=== PATIENT | female | born 1965 | race Caucasian/White ===

== ENCOUNTER 2017-04-13 23:50 | Emergency (ER) | payer OTHER, MEDICAID ==
[2015-12-15 14:00] VITALS: BMI 58.9
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
[2017-04-14 04:03] VITALS: BP 123/76; PULSE 75; RESP 20; TEMP 98.3; O2SAT 95
--- NOTE | 2017-04-14 04:21 | RAD ---
EXAM: XR Chest, 1 View CLINICAL HISTORY: 51 years old, female; Pain; Chest pain; Type not specified; Additional info: Injury /pain TECHNIQUE: Frontal view of the chest. EXAM DATE/TIME: Exam ordered 04/14/2017 1:45 AM COMPARISON: CR - CHEST ONE VIEW 04/14/2017 1:48:14 AM FINDINGS: Lungs: Central vascular prominence which may be partly an artifact of the semierect position and suboptimal inspiration. Pleural space: No pneumothorax. Heart: Prominent heart size. Mediastinum: Unremarkable. Bones/joints: Unremarkable. Vasculature: Central vascular prominence. Other findings: The present examination is labeled left semierect. There is comparison to a study which is time stamped 1 hour later with the comparison study being labeled left semierect portable. There are similar findings. IMPRESSION: Central vascular prominence which may be partly an artifact of the semierect position and suboptimal inspiration. Difficult to exclude mild pulmonary vascular congestion.
--- NOTE | 2017-04-14 08:20 | CT ---
PROCEDURE: CT HEAD WITHOUT CONTRAST. HISTORY: injury/pain COMPARISON: None available. TECHNIQUE: Axial computed tomography images were obtained through the head/brain without intravenous contrast. Radiation dose: Total exam DLP = 1451 mGy-cm. This CT exam was performed using one or more of the following dose reduction techniques: Automated exposure control, adjustment of the mA and/or kV according to patient size, and/or use of iterative reconstruction technique. FINDINGS: HEMORRHAGE: No intracranial hemorrhage. BRAIN: No mass effect or edema. No atrophy or chronic microvascular ischemic changes. VENTRICLES: Unremarkable. No hydrocephalus. CALVARIUM: Unremarkable. PARANASAL SINUSES: Large mucosal retention cyst and or polyp in the left maxillary sinus. MASTOID AIR CELLS: Unremarkable as visualized. No inflammatory changes. OTHER FINDINGS: None. IMPRESSION: No acute intracranial abnormality. Large mucosal retention cyst and or polyp in the left maxillary sinus. If focal neurologic deficit persists, consider MRI. These findings were preliminarily reported at 1:47 a.m. on 04/14/[address] Curtis Vanegas from [facility].
--- NOTE | 2017-04-14 09:11 | CT ---
PROCEDURE: CT Cervical Spine without contrast HISTORY: Fall COMPARISON: None available. TECHNIQUE: Axial computed tomography images were obtained of the cervical spine without the use of intravenous contrast. Coronal and sagittal reformatted images were created and reviewed. Radiation dose: Total exam DLP = 751.80 mGy-cm. This CT exam was performed using one or more of the following dose reduction techniques: Automated exposure control, adjustment of the mA and/or kV according to patient size, and/or use of iterative reconstruction technique. FINDINGS: VERTEBRAE: There is straightening of the cervical spine with loss of normal cervical lordosis. Vertebral alignment is normal. Vertebral height is maintained. There is an apparent transverse lucency at the base of the odontoid process with irregularity in the posterior cortex. There is no traumatic anterior listhesis. DISCS/SPINAL CANAL/NEURAL FORAMINA: There is mild multilevel degenerative disc disease due to a combination of disc osteophyte complexes, uncovertebral joint hypertrophy and mild multilevel facet arthropathy, worse at C4-5 with moderate right neural foraminal stenosis and PARASPINAL SOFT TISSUES: The paraspinous soft tissues are normal. OTHER FINDINGS: None. IMPRESSION: 1. Apparent transverse lucency at the base of the odontoid process with irregularity in the posterior cortex could represent an os odontoid however a nondisplaced fracture cannot be entirely excluded on an appropriate clinical setting. An MRI of the cervical spine without intravenous contrast would be helpful for further evaluation if clinically indicated. 2. Straightening of the cervical spine may be positional or related to muscle spasm. A preliminary report was provided by [facility] services. The concern of fracture at the base of the odontoid process was not raised on preliminary report. Important findings were discussed with Dr. Vanegas on 04/14/2017 at 9 a.m.
--- NOTE | 2017-04-14 12:22 | RAD ---
Right knee three views History: Injury. Pain. Comparison: None available. Findings: Moderate medial compartment joint space narrowing. Small to moderate suprapatellar joint effusion. No evidence of acute displaced fracture or dislocation. Impression: Moderate medial compartment joint space narrowing. Small to moderate suprapatellar joint effusion. If pain persists, consider MRI.
--- NOTE | 2017-04-14 12:49 | RAD ---
Left elbow three views History: Injury. Comparison: None available. Findings: Study limited secondary to large patient body habitus and suboptimal patient positioning and technique. No evidence of acute displaced fracture or dislocation. No significant elbow joint effusion. Impression: Negative acute. If pain persists, consider MRI.
== END 2017-04-14 04:52 | disposition home or self-care (01) ==
LOC: C.ER 23:50
DX: T14.8 Other injury of unspecified body region (principal); W07.XXXA Fall from chair, initial encounter; Y93.89 Activity, other specified; Y92.89 Other specified places as the place of occurrence of the external cause; Y99.0 Civilian activity done for income or pay
CPT/HCPCS: 70450; 71010; 72125; 73080; 73562; 96372; 99285; J1885

== ENCOUNTER 2017-05-17 23:09 | Observation (INO) | payer MEDICAID, OTHER ==
[2017-05-17 23:09] VITALS: BMI 58.9
[2017-05-17] MEDS ORDERED: Albuterol-Ipratrop 3 mg / 0.5 (3 ml) UD ONE (23:13)
[2017-05-17] MEDS ORDERED: Albuterol-Ipratrop 3 mg / 0.5 (3 ml) UD INH STA (23:34)
[2017-05-18 00:15] LABS: BASO # 0.1 K/uL (0.0-0.2); BASO % 0.6 % (0.0-2.0); EOS # 0.1 K/uL (0.0-0.7); EOS % 0.4 % (0.0-4.0); LYMPH # 1.2 K/uL (1.0-4.3); LYMPH % 9.4 % (20.0-40.0); MEAN CORPUSCULAR HEMOGLOBIN 29.4 pg (27.0-31.0); MEAN CORPUSCULAR HGB CONC 31.6 g/dL (33.0-37.0); MEAN PLATELET VOLUME 7.4 fL (7.2-11.7); MONO # 0.8 K/uL (0.0-0.8); MONO % 6.4 % (0.0-10.0); NEUT # 10.7 K/uL (1.8-7.0); NEUT % 83.2 % (50.0-75.0); PLATELET COUNT 282 K/uL (130-400); RBC 4.76 Mil/uL (3.80-5.20); RED CELL DISTRIBUTION WIDTH 15.5 % (11.5-14.5); WHITE BLOOD COUNT 12.9 K/uL (4.8-10.8)
[2017-05-18 00:28] LABS: ALB/GLOB RATIO 1.3 (1.0-2.1); ALBUMIN 3.7 g/dL (3.5-5.0); ALT/SGPT 51 U/L (9-52); AST/SGOT 35 U/L (14-36); BLOOD UREA NITROGEN 13 mg/dL (7-17); CALCIUM 8.2 mg/dl (8.6-10.4); GFR AFRICAN-AMERICAN > 60; GFR NON-AFRICAN AMERICAN > 60
[2017-05-18 00:40] LABS: B-TYPE NATRIURETIC PEPTIDE 342 pg/mL (0-900)
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
[2017-05-18] MEDS ORDERED: Azithromycin 500 MG in Sodium Chloride 0.9% 250 ML IV STA (00:49)
[2017-05-18] MEDS ORDERED: Albuterol-Ipratrop 3 mg / 0.5 (3 ml) UD INH STA (00:50)
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
[2017-05-18] MEDS ORDERED: cefTRIAXone IV 1 gm in Dextros 50 ML IVPB ONE (01:01)
[2017-05-18] MEDS ORDERED: Azithromycin 500mg/250ML NS 500 MG/250 ML BAG IVPB ONE (01:01)
[2017-05-18] MEDS ORDERED: Albuterol-Ipratrop 3 mg / 0.5 (3 ml) UD ONE ×2 (01:02)
[2017-05-18] MEDS ORDERED: Enoxaparin 40 mg Syringe SC STA (01:02)
[2017-05-18 01:06] LABS: BANDS 1 % (0-2); LYMPHOCYTE 7 % (20-40); MONOCYTE 8 % (0-10); NEUTROPHIL 84 % (50-75); PLATELET ESTIMATE NORMAL (NORMAL); TOTAL CELLS COUNTED 100
[2017-05-18 01:28] LABS: SQUAMOUS EPITHIAL < 1 /hpf (0-5); URINE BACTERIA OCC (<OCC); URINE BILIRUBIN NEGATIVE (NEGATIVE); URINE COLOR Yellow (YELLOW); URINE GLUCOSE (UA) NORMAL (Normal); URINE LEUKOCYTE ESTERASE 1+ Leu/uL (Negative); URINE NITRATE NEGATIVE (NEGATIVE); URINE PROTEIN NEGATIVE (NEGATIVE); URINE UROBILINOGEN NORMAL mg/dL (0.2-1.0)
[2017-05-18 01:32] LABS: URINE BLOOD TRACE (NEGATIVE); URINE CLARITY Hazy (Clear)
[2017-05-18 01:33] LABS: BARBITURATES, UR NEGATIVE (NEGATIVE); BENZODIAZEPINES, UR NEGATIVE (NEGATIVE)
[2017-05-18 01:36] LABS: PHENCYCLIDINE, UR NEGATIVE (NEGATIVE)
[2017-05-18 01:42] LABS: OPIATES, UR POSITIVE (NEGATIVE)
[2017-05-18] MEDS ORDERED: DiphenhydrAMINE 50 mg/ml Inj ONE (02:46)
[2017-05-18] MEDS ORDERED: DiphenhydrAMINE 50 mg/ml Inj IVP STA (02:57)
--- NOTE | 2017-05-18 03:45 | CT ---
EXAM: CT Angiography Chest With Intravenous Contrast CLINICAL HISTORY: 51 years old, female; Signs and symptoms; Shortness of breath; Additional info: Sob/megaly, ? pe TECHNIQUE: Axial computed tomographic angiography images of the chest with intravenous contrast using pulmonary embolism protocol. This CT exam was performed using one or more of the following dose reduction techniques: automated exposure control, adjustment of the mA and/or kV according to patient size, and/or use of iterative reconstruction technique. MIP reconstructed images were created and reviewed. Coronal and sagittal reformatted images were created and reviewed. CONTRAST: 100 mL of [id number] administered intravenously. EXAM DATE/TIME: 05/18/2017 12:59 AM COMPARISON: CR - CHEST ONE VIEW 04/14/2017 1:48:14 AM FINDINGS: Artifact due to large body habitus. Mild cardiomegaly. Consolidation/atelectasis in the midlungs abutting the cardiac borders. Platelike atelectasis in the lower lungs. No pulmonary embolism. No aortic dissection or aneurysm. No pleural or pericardial effussions. Old rib fractures are noted. Cholecystectomy clips are present. There is a 1.5 cm exophytic left renal lesion containing calcification for which followup is recommended. Atrophic right kidney. IMPRESSION: Bilateral atelectasis. Nonacute renal findings as above.
[2017-05-18] MEDS: Moxifloxacin IV 400mg/250ml NS 400 MG/250 ML BAG IVPB SCH (06:19)
[2017-05-18] MEDS: Enoxaparin 40 mg Syringe SC SCH (09:23)
[2017-05-18] MEDS: MethylPREDNISolone 40 mg Vial IVP SCH ×3 (09:23→17:13)
[2017-05-18] MEDS: Azithromycin 500 MG in Sodium Chloride 0.9% 250 ML IVPB SCH (09:34)
--- NOTE | 2017-05-18 10:58 | RAD ---
PROCEDURE: CHEST RADIOGRAPH, 1 VIEW HISTORY: SOB COMPARISON: 04/14/2017. FINDINGS: LUNGS: Examination is limited by patient body habitus. The lungs are clear. PLEURA: No pneumothorax or pleural fluid seen. CARDIOVASCULAR: This persistent cardiomegaly and mild pulmonary venous congestion. There is stable prominence of the right hilum likely related to a prominent pulmonary artery OSSEOUS STRUCTURES: No significant abnormalities. VISUALIZED UPPER ABDOMEN: Normal. OTHER FINDINGS: None. IMPRESSION: Persistent cardiomegaly and mild pulmonary venous congestion
[2017-05-18] MEDS: Albuterol-Ipratrop 3 mg / 0.5 (3 ml) UD INH SCH ×3 (11:16→20:13)
[2017-05-18] MEDS ORDERED: Potassium Chloride 20 mEq/15 ml LIQ UD PO ONE (18:49)
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
[2017-05-19] MEDS: Albuterol-Ipratrop 3 mg / 0.5 (3 ml) UD INH SCH ×8 (00:50→23:51)
[2017-05-19] MEDS: Moxifloxacin IV 400mg/250ml NS 400 MG/250 ML BAG IVPB SCH (05:25)
[2017-05-19 06:25] LABS: BASO % 0.3 % (0.0-2.0); HEMOGLOBIN 13.3 g/dL (11.0-16.0); LYMPH # 0.7 K/uL (1.0-4.3); LYMPH % 5.2 % (20.0-40.0); MEAN CELL VOLUME 93.3 fL (81.0-99.0); MEAN CORPUSCULAR HEMOGLOBIN 30.6 pg (27.0-31.0); MEAN CORPUSCULAR HGB CONC 32.8 g/dL (33.0-37.0); MEAN PLATELET VOLUME 7.4 fL (7.2-11.7); MONO # 0.9 K/uL (0.0-0.8); MONO % 6.1 % (0.0-10.0); NEUT # 12.5 K/uL (1.8-7.0); NEUT % 88.4 % (50.0-75.0); PLATELET COUNT 282 K/uL (130-400); RBC 4.36 Mil/uL (3.80-5.20); RED CELL DISTRIBUTION WIDTH 15.9 % (11.5-14.5); WHITE BLOOD COUNT 14.2 K/uL (4.8-10.8)
[2017-05-19 06:42] LABS: ALB/GLOB RATIO 1.2 (1.0-2.1); ALBUMIN 3.4 g/dL (3.5-5.0); ALT/SGPT 44 U/L (9-52); AST/SGOT 17 U/L (14-36); BLOOD UREA NITROGEN 17 mg/dL (7-17); GFR AFRICAN-AMERICAN > 60; GFR NON-AFRICAN AMERICAN > 60
[2017-05-19] MEDS: Fluticasone-Salmeterol 250-50mcg Diskus IH SCH (07:30)
[2017-05-19 08:27] LABS: EOSINOPHIL 1 % (0-4); LYMPHOCYTE 4 % (20-40); MONOCYTE 5 % (0-10); NEUTROPHIL 90 % (50-75); TOTAL CELLS COUNTED 100
[2017-05-19 08:28] LABS: PLATELET ESTIMATE NORMAL (NORMAL)
[2017-05-19] MEDS: MethylPREDNISolone 40 mg Vial IVP SCH ×3 (09:37→17:04)
[2017-05-19] MEDS: Enoxaparin 40 mg Syringe SC SCH (09:38)
[2017-05-19] MEDS: Azithromycin 500 MG in Sodium Chloride 0.9% 250 ML IVPB SCH (09:56)
[2017-05-19] MEDS: Tiotropium 18 mcg Cap For Inhalation IH SCH (11:19)
--- NOTE | 2017-05-19 13:58 | CARD ---
APPROVED REPORT EKG Measurement Heart [id number] <Conclusion> Normal sinus rhythm Rightward axis Low voltage QRS Cannot rule out Anterior infarct, age undetermined Abnormal ECG
--- NOTE | 2017-05-19 15:50 | CP.PCM.PN ---
Subjective - Date & Time of Evaluation Date of Evaluation: 05/19/17 Time of Evaluation: 15:50 - Subjective Subjective: PT SEEN BY DR. GILBERT. WILL D/C IF PEAK FLOW IMPROVES. LASIX X1 DOSE ORDERED. PT STILL MILDLY SOB AT REST. TO RE-EVAL FOR POSS D/C IN AM PENDING PT STATUS. DR. GILBERT TO FOLLOW WELL. Objective - Vital Signs/Intake and Output Vital Signs (last 24 hours): Temp Pulse Resp BP Pulse Ox 98.4 F 75 20 142/88 98 05/19/17 07:25 05/19/17 12:00 05/19/17 07:25 05/19/17 07:25 05/19/17 07:25 Intake and Output: 05/19/17 05/19/17 06:59 18:59 Intake Total 370 500 Output Total 1725 650 Balance -1355 -150 - Medications Medications: Current Medications Acetaminophen (Tylenol 325mg Tab) 650 mg PO Q6 PRN PRN Reason: Headache Last Admin: 05/19/17 14:56 Dose: 650 mg Albuterol/Ipratropium (Duoneb 3 Mg/0.5 Mg (3 Ml) Ud) 3 ml INH RQ4 [facility]ENNY Last Admin: 05/19/17 15:46 Dose: 3 ml Enoxaparin Sodium (Lovenox) 40 mg SC DAILY COUNTS INCLUDE 234 BEDS AT THE [facility] Last Admin: 05/19/17 09:38 Dose: 40 mg Furosemide (Lasix) 20 mg IVP ONCE ONE Stop: 05/19/17 16:01 Guaifenesin (Mucinex La) 600 mg PO BID COUNTS INCLUDE 234 BEDS AT THE [facility] Azithromycin 500 mg/ Sodium (Chloride) 250 mls @ 250 mls/hr IVPB DAILY RENNY Last Admin: 05/19/17 09:56 Dose: 250 mls/hr Moxifloxacin HCl (Avelox Iv 400mg/250ml Ns) 400 mg in 250 mls @ 167 mls/hr IVPB Q24H COUNTS INCLUDE 234 BEDS AT THE [facility] Last Admin: 05/19/17 05:25 Dose: 167 mls/hr Methylprednisolone (Solu-Medrol) 40 mg IVP TID RENNY Last Admin: 05/19/17 14:55 Dose: 40 mg Pantoprazole Sodium (Protonix Inj) 40 mg IVP DAILY COUNTS INCLUDE 234 BEDS AT THE [facility] Last Admin: 05/19/17 09:37 Dose: 40 mg Fluticasone/Salmeterol (Advair Diskus 250/50) 1 puff IH RQD RENNY Last Admin: 05/19/17 07:30 Dose: 1 puff Tiotropium [place] (Spiriva) 18 mcg IH RQD RENNY Last Admin: 05/19/17 11:19 Dose: Not Given - Labs Labs: 05/19/17 06:06 05/19/17 06:06 PT 11.0 SECONDS (9.7-12.2) 05/17/17 23:55 INR 1.0 05/17/17 23:55 APTT 29 SECONDS (21-34) 05/17/17 23:55
[2017-05-19] MEDS: guaiFENesin 600 mg ER Tab PO SCH (17:04)
[2017-05-20] MEDS: Albuterol-Ipratrop 3 mg / 0.5 (3 ml) UD INH SCH ×2 (04:31→07:21)
[2017-05-20] MEDS: Moxifloxacin IV 400mg/250ml NS 400 MG/250 ML BAG IVPB SCH (04:46)
[2017-05-20] MEDS: Tiotropium 18 mcg Cap For Inhalation IH SCH (07:21)
[2017-05-20] MEDS: Fluticasone-Salmeterol 250-50mcg Diskus IH SCH (07:22)
[2017-05-20 08:48] VITALS: BP 140/80; PULSE 60; RESP 18; TEMP 97; O2SAT 99
[2017-05-20] MEDS: MethylPREDNISolone 40 mg Vial IVP SCH (09:28)
[2017-05-20] MEDS: Enoxaparin 40 mg Syringe SC SCH (09:28)
[2017-05-20] MEDS: guaiFENesin 600 mg ER Tab PO SCH (09:28)
--- NOTE | 2017-05-20 09:48 | CP.PCM.PN ---
Subjective - Date & Time of Evaluation Date of Evaluation: 05/20/17 Time of Evaluation: 09:47 - Subjective Subjective: PT SEEN BY DR. GILBERT THIS MORNING AND CLEARED FOR D/C HOME TODAY. RX SENT TO PT'S PHARMACY PER DISCUSSION WITH DR. GILBERT. PT TO F/U WITH HIM IN THE OFFICE ON FRIDAY. 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 NO FURTHER ORDERS. Objective - Vital Signs/Intake and Output Vital Signs (last 24 hours): Temp Pulse Resp BP Pulse Ox 97.0 F L 60 18 140/80 99 05/20/17 08:46 05/20/17 08:46 05/20/17 08:46 05/20/17 08:46 05/20/17 08:46 Intake and Output: 05/20/17 05/20/17 06:59 18:59 Intake Total 682 Output Total 3000 Balance -2318 - Medications Medications: Current Medications Acetaminophen (Tylenol 325mg Tab) 650 mg PO Q6 PRN PRN Reason: Headache Last Admin: 05/19/17 14:56 Dose: 650 mg Albuterol/Ipratropium (Duoneb 3 Mg/0.5 Mg (3 Ml) Ud) 3 ml INH RQ4 [facility] Last Admin: 05/20/17 07:21 Dose: 3 ml Enoxaparin Sodium (Lovenox) 40 mg SC DAILY [facility] Last Admin: 05/20/17 09:28 Dose: 40 mg Guaifenesin (Mucinex La) 600 mg PO BID [facility] Last Admin: 05/20/17 09:28 Dose: 600 mg Azithromycin 500 mg/ Sodium (Chloride) 250 mls @ 250 mls/hr IVPB DAILY [facility] Last Admin: 05/19/17 09:56 Dose: 250 mls/hr Moxifloxacin HCl (Avelox Iv 400mg/250ml Ns) 400 mg in 250 mls @ 167 mls/hr IVPB Q24H [facility] Last Admin: 05/20/17 04:46 Dose: 167 mls/hr Methylprednisolone (Solu-Medrol) 40 mg IVP TID [facility] Last Admin: 05/20/17 09:28 Dose: 40 mg Pantoprazole Sodium (Protonix Inj) 40 mg IVP DAILY [facility] Last Admin: 05/20/17 09:28 Dose: 40 mg Fluticasone/Salmeterol (Advair Diskus 250/50) 1 puff IH RQD [facility]ENNY Last Admin: 05/20/17 07:22 Dose: 1 puff Tiotropium [place] (Spiriva) 18 mcg IH RQD RENNY Last Admin: 05/20/17 07:21 Dose: 18 mcg - Labs Labs: 05/19/17 06:06 05/19/17 06:06 PT 11.0 SECONDS (9.7-12.2) 05/17/17 23:55 INR 1.0 05/17/17 23:55 APTT 29 SECONDS (21-34) 05/17/17 23:55
[2017-05-20] MEDS: Azithromycin 500 MG in Sodium Chloride 0.9% 250 ML IVPB SCH (10:21)
--- NOTE | 2017-05-21 21:04 | CP.PCM.DIS ---
Provider - Provider Date of Admission: 05/18/17 00:50 Attending physician: Aryan Ramirez MD Time Spent in preparation of Discharge (in minutes): 45 Diagnosis - Discharge Diagnosis (1) COPD (chronic obstructive pulmonary disease) Status: Acute Hospital Course - Lab Results Lab Results: Most Recent Lab Values WBC 14.2 K/uL (4.8-10.8) H 05/19/17 06:06 RBC 4.36 Mil/uL (3.80-5.20) 05/19/17 06:06 Hgb 13.3 g/dL (11.0-16.0) 05/19/17 06:06 Hct 40.7 % (34.0-47.0) 05/19/17 06:06 MCV 93.3 fL (81.0-99.0) 05/19/17 06:06 MCH 30.6 pg (27.0-31.0) 05/19/17 06:06 MCHC 32.8 g/dL (33.0-37.0) L 05/19/17 06:06 RDW 15.9 % (11.5-14.5) H 05/19/17 06:06 Plt Count 282 K/uL (130-400) 05/19/17 06:06 MPV 7.4 fL (7.2-11.7) 05/19/17 06:06 Neut % (Auto) 88.4 % (50.0-75.0) H 05/19/17 06:06 Lymph % (Auto) 5.2 % (20.0-40.0) L 05/19/17 06:06 [place] % (Auto) 6.1 % (0.0-10.0) 05/19/17 06:06 Eos % (Auto) 0.0 % (0.0-4.0) 05/19/17 06:06 Baso % (Auto) 0.3 % (0.0-2.0) 05/19/17 06:06 Neut # 12.5 K/uL (1.8-7.0) H 05/19/17 06:06 Lymph # 0.7 K/uL (1.0-4.3) L 05/19/17 06:06 [place] # 0.9 K/uL (0.0-0.8) H 05/19/17 06:06 Eos # 0.0 K/uL (0.0-0.7) 05/19/17 06:06 Baso # 0.0 K/uL (0.0-0.2) 05/19/17 06:06 Neutrophils % (Manual) 90 % (50-75) H 05/19/17 06:06 Band Neutrophils % 1 % (0-2) 05/17/17 23:55 Lymphocytes % (Manual) 4 % (20-40) L 05/19/17 06:06 Monocytes % (Manual) 5 % (0-10) 05/19/17 06:06 Eosinophils % (Manual) 1 % (0-4) 05/19/17 06:06 Platelet Estimate Normal (NORMAL) 05/19/17 06:06 RBC Morphology Normal 05/19/17 06:06 PT 11.0 SECONDS (9.7-12.2) 05/17/17 23:55 INR 1.0 05/17/17 23:55 APTT 29 SECONDS (21-34) 05/17/17 23:55 D-Dimer, Quantitative 502 ng/mlDDU (0-243) H 05/17/17 23:55 Sodium 141 mmol/L (132-148) 05/19/17 06:06 Potassium 5.0 mmol/L (3.6-5.2) 05/19/17 06:06 Chloride 93 mmol/L (98-107) L 05/19/17 06:06 Carbon Dioxide 38 mmol/L (22-30) H 05/19/17 06:06 Anion Gap 15 (10-20) 05/19/17 06:06 BUN 17 mg/dL (7-17) 05/19/17 06:06 Creatinine 0.8 MG/DL (0.7-1.2) 05/19/17 06:06 Est GFR ( Amer) > 60 05/19/17 06:06 Est GFR (Non-Af Amer) > 60 05/19/17 06:06 Random Glucose 122 mg/dL (65-105) H 05/19/17 06:06 Calcium 8.0 mg/dl (8.6-10.4) L 05/19/17 06:06 Total Bilirubin 0.2 mg/dL (0.2-1.3) 05/19/17 06:06 AST 17 U/L (14-36) 05/19/17 06:06 ALT 44 U/L (9-52) 05/19/17 06:06 Alkaline Phosphatase 53 U/L (38-126) 05/19/17 06:06 Troponin I < 0.0120 ng/mL (0.00-0.120) 05/17/17 23:55 NT-Pro-B Natriuret Pep 342 pg/mL (0-900) 05/17/17 23:55 Total Protein 6.2 g/dL (6.3-8.3) L 05/19/17 06:06 Albumin 3.4 g/dL (3.5-5.0) L 05/19/17 06:06 Globulin 2.8 gm/dL (2.2-3.9) 05/19/17 06:06 Albumin/Globulin Ratio 1.2 (1.0-2.1) 05/19/17 06:06 TSH 3rd Generation 3.97 mIU/L (0.46-4.68) 05/17/17 23:55 Urine Color Yellow (YELLOW) 05/18/17 01:12 Urine Clarity Hazy (Clear) 05/18/17 01:12 Urine pH 5.0 (5.0-8.0) 05/18/17 01:12 Ur Specific [place] 1.008 (1.003-1.030) 05/18/17 01:12 Urine Protein Negative mg/dL (NEGATIVE) 05/18/17 01:12 Urine Glucose (UA) Normal mg/dL (Normal) 05/18/17 01:12 Urine Ketones Negative mg/dL (NEGATIVE) 05/18/17 01:12 Urine Blood Trace (NEGATIVE) H 05/18/17 01:12 Urine Nitrate Negative (NEGATIVE) 05/18/17 01:12 Urine Bilirubin Negative (NEGATIVE) 05/18/17 01:12 Urine Urobilinogen Normal mg/dL (0.2-1.0) 05/18/17 01:12 Ur Leukocyte Esterase 1+ [place]/uL (Negative) H 05/18/17 01:12 Urine WBC (Auto) 14 /hpf (0-5) H 05/18/17 01:12 Urine RBC (Auto) 2 /hpf (0-3) 05/18/17 01:12 Ur Squamous Epith Cells < 1 /hpf (0-5) 05/18/17 01:12 Urine Bacteria Occ (<OCC) H 05/18/17 01:12 Urine Opiates Screen Positive (NEGATIVE) 05/18/17 01:12 Urine Methadone Screen Negative (NEGATIVE) 05/18/17 01:12 Ur Barbiturates Screen Negative (NEGATIVE) 05/18/17 01:12 Ur Phencyclidine Scrn Negative (NEGATIVE) 05/18/17 01:12 Ur Amphetamines Screen Negative (NEGATIVE) 05/18/17 01:12 U Benzodiazepines Scrn Negative (NEGATIVE) 05/18/17 01:12 U Oth Cocaine Metabols Negative (NEGATIVE) 05/18/17 01:12 U Cannabinoids Screen Negative (NEGATIVE) 05/18/17 01:12 - Hospital Course Hospital Course: History present illness: 50-year-old female with history of COPD, current active smoker, obesity, diabetes, hypertension, hypercholesteremia and chronic pain syndrome. Patient came to the emergency room with the worsening shortness of breath. She was having severe ongoing symptoms of shortness of breath, and congested lungs for 2 days. She did not have any fever, but chills noted, she denies any cough, but shortness of breath associate with the mucus production noted. She did not have any chest pain, legs bilateral swelling noted. Recently the weeks ago patient had a fall, and injury to the neck. At the time patient was hospitalized, had MRI. Upon arrival to the emergency room patient was having increasing symptoms of shortness of breath, and her oxygen saturation is very low. Patient underwent extensive workup including CT angiogram of the chest to rule out pulmonary embolism. Past medical history: Hypertension, COPD, hypercholesteremia, obesity, possible obesity hypoventilation. Allergy: Allergic to penicillin. Personal history: Patient is an active smoker, one pack per day for many years, denies any alcohol , lives by herself. Past family history significant for heart failure. Review of systems: She has having some headache, neck pain noted, no chest pain, shortness of breath, wheezing noted, chest tightness, associate with the mucus production with the cough. 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 CT of the chest showing no evidence of any acute infiltrate, no pulmonary embolism. Atelectatic changes noted. Left kidney showing evidence of mass like lesion is outpatient treatment. Labs reviewed. Nonspecific Assessment and recommendation: 50-year-old female with history of hypertension, diabetes, hypercholesteremia, obesity, obesity hypoventilation, and COPD admitted with a possible acute exacerbation of COPD, and associate her bronchitis. Bronchodilators, cortical steroid, intravenous antibiotic and the diuretics. Will proceed monitor the patient. Patient wanted to leave the hospital tomorrow, if the patient is currently stable, will discharge the patient in the morning and will follow the patient. DVT and GI prophylaxis spoke to the patient in details will follow the patient Patient admitted to the hospital with the possible diagnosis of acute exacerbation of COPD. Patient was having significant tightness in the chest. Hypoxia. Patient was placed on oxygen. Broncho-dilators started. Intravenous corticosteroids started. Antibiotic started. Patient continues to improve slowly. But that she wanted to go home. Patient is able to walk. Her oxygen saturation is improving. She will be discharged home, she will continue antibiotic corticosteroids and broncho-to let us. And she will follow-up as an outpatient Discharge Plan - Discharge Medications Prescriptions: Albuterol/Ipratropium [Duoneb 3 mg/0.5 mg (3 ml) UD] 3 ml IH Q6 PRN #100 PRN Reason: Wheezing Furosemide [Lasix] 20 mg PO DAILY #30 tab levoFLOXacin [Levaquin] 750 mg PO DAILY #5 tab Methylprednisolone [Medrol Dose Pack (21 tabs)] 4 mg PO DAILY #21 mg - Follow Up Plan Condition: FAIR Disposition: HOME/ ROUTINE Instructions: Methylprednisolone (By mouth), Levofloxacin (By mouth), Ipratropium/Albuterol (By breathing), Heart Failure (DC), Heart Healthy Diet (DC ), COPD (Chronic Obstructive Pulmonary Disease) (DC) Additional Instructions: FOLLOW UP WITH DR. RAMIREZ IN THE OFFICE ON FRIDAY--CALL FOR APPT TIME OR TO RESCHEDULE IF NECESSARY. TAKE ALL OF YOUR HOME MEDS USUAL. TAKE THE STEROID TAPER (MEDROL PACK) EXACTLY PRESCRIBED. TAKE THE ANTIBIOTIC (LEVAQUIN) FOR 5 DAYS UNTIL COMPLETED. IF YOU HAVE ANY FURTHER CONCERNS OR QUESTIONS, CONTACT DR. RAMIREZ'S OFFICE. Referrals: Aryan Ramirze MD [Staff Provider] -
== END 2017-05-20 11:52 | disposition home or self-care (01) ==
LOC: C.ER 23:09 → C.9E 05-18 00:50 → C.6T 05-18 00:50
PROVIDERS: ADMIT Internal Medicine; ATTEND Internal Medicine
DX: J44.0 Chronic obstructive pulmonary disease with (acute) lower respiratory infection (principal); N39.0 Urinary tract infection, site not specified; F17.210 Nicotine dependence, cigarettes, uncomplicated; I13.0 Hypertensive heart and chronic kidney disease with heart failure and stage 1 through stage 4 chronic kidney disease, or unspecified chronic kidney disease; N18.9 Chronic kidney disease, unspecified; I50.9 Heart failure, unspecified; G47.33 Obstructive sleep apnea (adult) (pediatric); E66.2 Morbid (severe) obesity with alveolar hypoventilation; Z68.44 Body mass index [BMI] 60.0-69.9, adult
CPT/HCPCS: 36415; 71010; 71275; 80053; 80324; 80345; 80346; 80349; 80353; 80358; 80361; 81001; 83880; 83992; 84443; 84484; 85025; 85378; 85610; 85730; 87040; 93005; 94150; 94640; 94760; 96365; 96366; 96367; 96372; 96375; 96376; 97116; 97163; 99285; C9113; G0378; G8978; G8979; J0456; J0696; J1200; J1650; J1940; J2280; J2920; J2930; J7050

== ENCOUNTER 2018-04-15 07:20 | Emergency (ER) | payer MEDICAID ==
[2018-04-15 07:40] VITALS: BMI 53.8
[2018-04-15 07:43] VITALS: BP 153/96; PULSE 73; RESP 18; TEMP 98.7; O2SAT 95
[2018-04-15] MEDS ORDERED: Acetaminophen-Codeine 300/30 mg Tab PO STA (07:58)
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
[2018-04-15] MEDS ORDERED: Acetaminophen-Codeine 300/30 mg Tab PO ONE (08:05)
== END 2018-04-15 08:09 | disposition home or self-care (01) ==
LOC: C.ER 07:20
DX: K02.9 Dental caries, unspecified (principal)

== ENCOUNTER 2018-11-29 07:16 | Emergency (ER) | payer MEDICAID ==
[2018-11-29 07:16] VITALS: BMI 53.8
[2018-11-29 07:25] VITALS: BP 143/93; RESP 24; TEMP 99.5
[2018-11-29] MEDS ORDERED: Albuterol-Ipratrop 3 mg / 0.5 (3 ml) UD INH STA (07:31)
[2018-11-29] MEDS ORDERED: Albuterol-Ipratrop 3 mg / 0.5 (3 ml) UD ONE (07:31)
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
[2018-11-29 07:59] VITALS: PULSE 95
[2018-11-29 08:05] VITALS: O2SAT 87
== END 2018-11-29 08:23 | disposition home or self-care (01) ==
LOC: C.ER 07:16
DX: J44.1 Chronic obstructive pulmonary disease with (acute) exacerbation (principal); J06.9 Acute upper respiratory infection, unspecified; I12.9 Hypertensive chronic kidney disease with stage 1 through stage 4 chronic kidney disease, or unspecified chronic kidney disease; N18.9 Chronic kidney disease, unspecified; Z72.0 Tobacco use

== ENCOUNTER 2018-12-04 23:26 | Inpatient (IN) | payer MEDICAID ==
[2018-12-04 23:27] VITALS: BMI 53.8
[2018-12-04] MEDS ORDERED: Albuterol-Ipratrop 3 mg / 0.5 (3 ml) UD ONE (23:39)
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
[2018-12-05 00:02] LABS: BASO # 0.1 K/uL (0.0-0.2); BASO % 0.5 % (0.0-2.0); EOS # 0.1 K/uL (0.0-0.7); EOS % 0.3 % (0.0-4.0); HEMOGLOBIN 14.1 g/dL (11.0-16.0); LYMPH # 2.7 K/uL (1.0-4.3); MEAN CORPUSCULAR HEMOGLOBIN 31.6 pg (27.0-31.0); MEAN CORPUSCULAR HGB CONC 32.2 g/dL (33.0-37.0); MEAN PLATELET VOLUME 8.2 fL (7.2-11.7); MONO # 1.5 K/uL (0.0-0.8); MONO % 7.5 % (0.0-10.0); NEUT # 15.2 K/uL (1.8-7.0); NEUT % 77.7 % (50.0-75.0); NRBC % 2.4 % (0.0-2.0); RBC 4.46 Mil/uL (3.80-5.20); RED CELL DISTRIBUTION WIDTH 14.4 % (11.5-14.5); WHITE BLOOD COUNT 19.6 K/uL (4.8-10.8)
[2018-12-05 00:08] LABS: MEAN CELL VOLUME 98.2 fL (81.0-99.0)
[2018-12-05] MEDS ORDERED: Magnesium Sulfate 1 gm in D5W 2 GM/200 ML BAG IVPB ONE (00:10)
[2018-12-05] MEDS ORDERED: Albuterol-Ipratrop 3 mg / 0.5 (3 ml) UD ONE (00:10)
[2018-12-05 00:13] LABS: INR 1.2; PROTHROMBIN TIME 12.8 SECONDS (9.7-12.2)
[2018-12-05 00:16] LABS: ABG ALLEN TEST POS; ARTERIAL BLOOD GAS HCO3 29.1 mmol/L (21-28); ARTERIAL BLOOD GAS O2 SAT 93.9 % (95-98); ARTERIAL BLOOD GAS PCO2 79 mm/Hg (35-45); ARTERIAL BLOOD GAS PH 7.26 (7.35-7.45); ARTERIAL BLOOD GAS PO2 66 mm/Hg (80-100); ARTERIAL BLOOD GAS TCO2 37.9 mmol/L (22-28)
[2018-12-05 00:16] LABS: ALBUMIN 4.2 g/dL (3.5-5.0); ALT/SGPT 131 U/L (9-52); AST/SGOT 87 U/L (14-36); BLOOD UREA NITROGEN 43 mg/dL (7-17); CALCIUM 8.1 mg/dl (8.6-10.4); GFR NON-AFRICAN AMERICAN > 60
[2018-12-05] MEDS: Magnesium Sulfate 1 gm in D5W 1 GM/100 ML BAG IVPB SCH ×2 (00:16→00:17)
[2018-12-05] MEDS: Albuterol-Ipratrop 3 mg / 0.5 (3 ml) UD IH SCH (00:20)
[2018-12-05] MEDS ORDERED: Piperacillin/Tazobact 3.375 gm 100 ML IVPB STA (00:25)
[2018-12-05] MEDS ORDERED: Piperacillin/Tazobact 3.375 gm 100 ML IVPB ONE (00:52)
[2018-12-05] MEDS ORDERED: Azithromycin 500 MG in Sodium Chloride 0.9% 250 ML IVPB SCH (03:18)
[2018-12-05] MEDS ORDERED: Enoxaparin 40 mg Syringe SC ONE (03:19)
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
[2018-12-05] MEDS: MethylPREDNISolone 40 mg Vial IVP SCH ×3 (05:10→21:43)
--- NOTE | 2018-12-05 08:09 | CP.PCM.PN ---
Subjective - Date & Time of Evaluation Date of Evaluation: 12/05/18 Time of Evaluation: 08:08 - Subjective Subjective: Patient now able to take a deep breath. She is able to complete a sentence. Still having chest tightness. Wheezing noted. Placed on 4 L of nasal cannula now. Saturation is 90%. Will get blood gas analysis given nebulizer. We will start the patient on antibiotic. Bronchodilators and steroid. Patient may benefit having a high flow oxygen after the blood gas analysis will follow the patient. We will get a CT scan of the chest Objective - Vital Signs/Intake and Output Vital Signs (last 24 hours): Temp Pulse Resp BP Pulse Ox 97.9 F 80 18 140/84 96 12/05/18 07:00 12/05/18 07:00 12/05/18 07:00 12/05/18 07:00 12/05/18 07:00 - Medications Medications: Current Medications Albuterol/Ipratropium (Duoneb 3 Mg/0.5 Mg (3 Ml) Ud) 3 ml INH RQ4 RENNY Fluticasone/Vilanterol (Breo Ellipta 200-25 Mcg Inh) 1 puff INH RQD RENNY Ceftriaxone Sodium 1 gm/ (Sodium Chloride) 100 mls @ 100 mls/hr IVPB DAILY [facility]; Protocol Azithromycin 500 mg/ Sodium (Chloride) 250 mls @ 250 mls/hr IVPB DAILY [facility]; Protocol Methylprednisolone (Solu-Medrol) 40 mg IVP Q8 RENNY Last Admin: 12/05/18 05:10 Dose: 40 mg Pantoprazole Sodium (Protonix Inj) 40 mg IVP DAILY RENNY Tiotropium Zap (Spiriva) 18 mcg INH RQ24 RENNY - Labs Labs: 12/04/18 23:58 12/04/18 23:58 PT 12.8 SECONDS (9.7-12.2) H 12/04/18 23:58 INR 1.2 12/04/18 23:58 APTT 26 SECONDS (21-34) 12/04/18 23:58
[2018-12-05] MEDS: Albuterol-Ipratrop 3 mg / 0.5 (3 ml) UD INH SCH ×4 (08:20→20:06)
[2018-12-05 08:23] LABS: ARTERIAL BLOOD GAS HCO3 28.5 mmol/L (21-28); ARTERIAL BLOOD GAS HEMOGLOBIN 13.9 g/dL (11.7-17.4); ARTERIAL BLOOD GAS O2 SAT 94.6 % (95-98); ARTERIAL BLOOD GAS PCO2 62 mm/Hg (35-45); ARTERIAL BLOOD GAS PH 7.33 (7.35-7.45); ARTERIAL BLOOD GAS PO2 65 mm/Hg (80-100); ARTERIAL BLOOD GAS TCO2 34.6 mmol/L (22-28)
[2018-12-05] MEDS: Fluticasone-Vilanterol 200/25mcg Diskus INH SCH (09:43)
[2018-12-05] MEDS: Azithromycin 500 MG in Sodium Chloride 0.9% 250 ML IVPB SCH (11:19)
--- NOTE | 2018-12-05 14:00 | RAD ---
Date of service: 12/05/2018 PROCEDURE: CHEST RADIOGRAPH, 1 VIEW HISTORY: SOB COMPARISON: Comparison is made with the previous study dated 09/21/2018 FINDINGS: LUNGS: Possible [id number] pulmonary vascular congestion. PLEURA: Blunting of both costophrenic angles. CARDIOVASCULAR: No aortic atherosclerotic calcification present. The cardiac silhouette is enlarged. OSSEOUS STRUCTURES: No significant abnormalities. VISUALIZED UPPER ABDOMEN: Normal. OTHER FINDINGS: None. IMPRESSION: Possible CHF.
[2018-12-06] MEDS: Albuterol-Ipratrop 3 mg / 0.5 (3 ml) UD INH SCH ×6 (00:15→20:00)
[2018-12-06] MEDS: MethylPREDNISolone 40 mg Vial IVP SCH ×3 (05:49→21:30)
[2018-12-06 08:34] LABS: BASO # 0.1 K/uL (0.0-0.2); BASO % 0.7 % (0.0-2.0); HEMOGLOBIN 12.8 g/dL (11.0-16.0); LYMPH # 0.8 K/uL (1.0-4.3); LYMPH % 4.6 % (20.0-40.0); MEAN CELL VOLUME 98.7 fL (81.0-99.0); MEAN CORPUSCULAR HEMOGLOBIN 31.9 pg (27.0-31.0); MEAN CORPUSCULAR HGB CONC 32.3 g/dL (33.0-37.0); MONO # 0.8 K/uL (0.0-0.8); MONO % 4.3 % (0.0-10.0); NEUT % 90.4 % (50.0-75.0); NRBC % 0.8 % (0.0-2.0); PLATELET COUNT 286 K/uL (130-400); RED CELL DISTRIBUTION WIDTH 14.4 % (11.5-14.5); WHITE BLOOD COUNT 17.7 K/uL (4.8-10.8)
[2018-12-06 09:15] LABS: ANISOCYTOSIS SLIGHT; BANDS 8 % (0-2); HYPOCHROMIC SLIGHT; LYMPHOCYTE 5 % (20-40); MONOCYTE 4 % (0-10); NEUTROPHIL 83 % (50-75); NUCLEATED RED BLOOD CELL 1 % (0-0); PLATELET ESTIMATE NORMAL (NORMAL); POLYCHROMIC SLIGHT; TOTAL CELLS COUNTED 100
[2018-12-06 09:16] LABS: LARGE PLATELETS PRESENT; TOXIC GRANULATION PRESENT
[2018-12-06 09:19] LABS: ALB/GLOB RATIO 1.2 (1.0-2.1); ALBUMIN 3.9 g/dL (3.5-5.0); ALT/SGPT 82 U/L (9-52); AST/SGOT 40 U/L (14-36); BLOOD UREA NITROGEN 29 mg/dL (7-17); CALCIUM 8.2 mg/dl (8.6-10.4); GFR NON-AFRICAN AMERICAN > 60
[2018-12-06] MEDS: Tiotropium 18 mcg Cap For Inhalation INH SCH (09:21)
[2018-12-06] MEDS: Fluticasone-Vilanterol 200/25mcg Diskus INH SCH (09:22)
--- NOTE | 2018-12-06 10:53 | CT ---
Date of service: 12/06/2018 PROCEDURE: CT Chest without contrast HISTORY: pneumonia COMPARISON: None available. TECHNIQUE: Contiguous axial images were obtained through the chest without intravenous contrast enhancement. Sagittal and coronal reconstructions were performed. Radiation dose: Total exam DLP = 925.29 mGy-cm. This CT exam was performed using one or more of the following dose reduction techniques: Automated exposure control, adjustment of the mA and/or kV according to patient size, and/or use of iterative reconstruction technique. FINDINGS: LUNGS: Again noted is focal airspace consolidation at right middle lobe which appears slightly smaller compared to the previous exam. There is interval significant decrease in the size of the previously seen airspace consolidation in the lungs with residual linear opacity likely represents scar tissue or atelectasis. Otherwise no significant interval changes in the lungs. The upper airway is patent. MEDIASTINUM: Unremarkable thoracic aorta. No aneurysm. The heart is mildly to moderately enlarged. Main pulmonary artery is mildly to moderately enlarged. No lymphadenopathy. No aortic atherosclerotic calcification. PLEURA: No pleural fluid. No pneumothorax. BONES: No evidence of new destructive bony lesion. UPPER ABDOMEN: The right kidney is small in size. Patient status post prior cholecystectomy. OTHER FINDINGS: None. IMPRESSION: Persistent small airspace consolidation at right middle lobe. The differential consideration includes atelectasis versus less likely pneumonia or middle lobe syndrome. Interval almost complete resolving of the previously seen airspace consolidation at the lingula with persistent linear opacity likely scar tissue or atelectasis. Otherwise no significant interval change in the lungs. Cardiomegaly.
[2018-12-06] MEDS: Azithromycin 500 MG in Sodium Chloride 0.9% 250 ML IVPB SCH (11:35)
[2018-12-06 13:35] LABS: SQUAMOUS EPITHIAL 1 /hpf (0-5); URINE BILIRUBIN NEGATIVE (NEGATIVE); URINE BLOOD NEGATIVE (NEGATIVE); URINE CLARITY Clear (Clear); URINE COLOR Yellow (YELLOW); URINE GLUCOSE (UA) NORMAL (Normal); URINE LEUKOCYTE ESTERASE NEG Leu/uL (Negative); URINE PROTEIN NEGATIVE (NEGATIVE); URINE UROBILINOGEN NORMAL mg/dL (0.2-1.0)
--- NOTE | 2018-12-06 18:17 | CP.PCM.PN ---
Subjective - Date & Time of Evaluation Date of Evaluation: 12/06/18 Time of Evaluation: 18:16 - Subjective Subjective: Patient is now sitting up comfortably. On high flow FiO2. Patient is receiving 35% oxygen at this time. The flow is 25. Patient oxygen saturation is 93%. Still having some wheezing and shortness of breath. On examination: Bilateral wheezing noted, chest good air entry otherwise Soft abdomen. Edema 1+ noted. Patient was trying to go to the bathroom, at that time the oxygen tank fell on the right foot, but there is no tenderness or swelling noted. Will watch that for any acute pain. Patient is a 53-year-old female with a history of chronic smoking and hypertension admitted to the hospital with acute exacerbation of COPD. On antibiotic. Taper the Solu-Medrol. Glucose monitoring. DVT GI prophylaxis. Reduce the taper the oxygen. And will follow the patient Objective - Vital Signs/Intake and Output Vital Signs (last 24 hours): Temp Pulse Resp BP Pulse Ox 98 F 76 20 151/72 H 95 12/06/18 17:23 12/06/18 17:23 12/06/18 17:23 12/06/18 17:23 12/06/18 17:23 Intake and Output: 12/06/18 12/06/18 06:59 18:59 Intake Total 175 Balance 175 - Medications Medications: Current Medications Albuterol/Ipratropium (Duoneb 3 Mg/0.5 Mg (3 Ml) Ud) 3 ml INH RQ4 RENNY Last Admin: 12/06/18 11:44 Dose: 3 ml Fluticasone/Vilanterol (Breo Ellipta 200-25 Mcg Inh) 1 puff INH RQD RENNY Last Admin: 12/06/18 09:22 Dose: 1 puff Ceftriaxone Sodium 1 gm/ (Sodium Chloride) 100 mls @ 100 mls/hr IVPB DAILY [facility]; Protocol Last Admin: 12/06/18 09:42 Dose: 100 mls/hr Azithromycin 500 mg/ Sodium (Chloride) 250 mls @ 250 mls/hr IVPB DAILY@1100 [facility]; Protocol Last Admin: 12/06/18 11:35 Dose: 250 mls/hr Methylprednisolone (Solu-Medrol) 40 mg IVP Q12 RENNY Pantoprazole Sodium (Protonix Inj) 40 mg IVP DAILY [facility] Last Admin: 12/06/18 09:42 Dose: 40 mg Tiotropium [place] (Spiriva) 18 mcg INH RQ24 RENNY Last Admin: 12/06/18 09:21 Dose: 18 mcg - Labs Labs: 12/06/18 08:26 12/06/18 08:26 PT 12.8 SECONDS (9.7-12.2) H 12/04/18 23:58 INR 1.2 12/04/18 23:58 APTT 26 SECONDS (21-34) 12/04/18 23:58
[2018-12-07] MEDS: Albuterol-Ipratrop 3 mg / 0.5 (3 ml) UD INH SCH ×6 (01:00→19:51)
[2018-12-07] MEDS: Tiotropium 18 mcg Cap For Inhalation INH SCH (07:25)
[2018-12-07] MEDS: Fluticasone-Vilanterol 200/25mcg Diskus INH SCH (07:25)
[2018-12-07 07:51] LABS: BASO % 0.4 % (0.0-2.0); HEMOGLOBIN 12.6 g/dL (11.0-16.0); LYMPH % 7.3 % (20.0-40.0); MEAN CELL VOLUME 98.2 fL (81.0-99.0); MEAN CORPUSCULAR HEMOGLOBIN 31.6 pg (27.0-31.0); MEAN CORPUSCULAR HGB CONC 32.1 g/dL (33.0-37.0); MEAN PLATELET VOLUME 7.9 fL (7.2-11.7); MONO % 7.5 % (0.0-10.0); NEUT # 11.1 K/uL (1.8-7.0); NEUT % 84.8 % (50.0-75.0); NRBC % 0.5 % (0.0-2.0); PLATELET COUNT 274 K/uL (130-400); WHITE BLOOD COUNT 13.1 K/uL (4.8-10.8)
[2018-12-07 08:10] LABS: ALB/GLOB RATIO 1.2 (1.0-2.1); ALBUMIN 3.8 g/dL (3.5-5.0); ALT/SGPT 71 U/L (9-52); AST/SGOT 39 U/L (14-36); BLOOD UREA NITROGEN 30 mg/dL (7-17); CALCIUM 8.2 mg/dl (8.6-10.4); GFR NON-AFRICAN AMERICAN > 60
[2018-12-07 08:52] LABS: BANDS 1 % (0-2); LYMPHOCYTE 10 % (20-40); MONOCYTE 8 % (0-10); NEUTROPHIL 81 % (50-75); PLATELET ESTIMATE NORMAL (NORMAL); TOTAL CELLS COUNTED 100
[2018-12-07] MEDS: MethylPREDNISolone 40 mg Vial IVP SCH ×2 (09:23→21:31)
[2018-12-07] MEDS: Enoxaparin 40 mg Syringe SC SCH (09:24)
[2018-12-07] MEDS: Azithromycin 500 MG in Sodium Chloride 0.9% 250 ML IVPB SCH (11:55)
[2018-12-08] MEDS: Albuterol-Ipratrop 3 mg / 0.5 (3 ml) UD INH SCH ×6 (00:30→20:23)
[2018-12-08] MEDS: Fluticasone-Vilanterol 200/25mcg Diskus INH SCH (09:19)
[2018-12-08] MEDS: MethylPREDNISolone 40 mg Vial IVP SCH ×2 (09:20→21:34)
[2018-12-08] MEDS: Enoxaparin 40 mg Syringe SC SCH (09:20)
[2018-12-08] MEDS: Tiotropium 18 mcg Cap For Inhalation INH SCH (09:20)
[2018-12-08] MEDS: Azithromycin 500 MG in Sodium Chloride 0.9% 250 ML IVPB SCH (12:16)
--- NOTE | 2018-12-08 23:02 | CP.PCM.PN ---
Subjective - Date & Time of Evaluation Date of Evaluation: 12/08/18 Time of Evaluation: 23:01 - Subjective Subjective: Patient this morning was more comfortable than yesterday. Using the nasal cannula 5 L. But currently on 4 L. And she was having a saturation of 92%. Able to take a deep breath. Mild cough noted On examination: Vital signs are stable. Good air entry bilaterally noted expiratory wheezing also noted heart sounds are regular abdomen obesity present extremities pedal edema Currently on antibiotic and prednisone. Solu-Medrol is on twice a day 40 mg. Will reduce the dose. CAT scan of the lungs negative for any acute infiltrative changes. Most likely patient admitted to the hospital with a COPD exacerbation with acute on chronic respiratory failure. CO2 retention. We will continue the bronchodilator. Reduced oxygen as tolerated Physical therapy and will follow the patient Objective - Vital Signs/Intake and Output Vital Signs (last 24 hours): Temp Pulse Resp BP Pulse Ox 98.1 F 66 18 141/73 96 12/08/18 15:00 12/08/18 20:26 12/08/18 15:00 12/08/18 15:00 12/08/18 15:00 - Medications Medications: Current Medications Acetaminophen (Tylenol 325mg Tab) 975 mg PO Q6 PRN PRN Reason: Pain, severe (8-10) Last Admin: 12/08/18 19:54 Dose: 975 mg Albuterol/Ipratropium (Duoneb 3 Mg/0.5 Mg (3 Ml) Ud) 3 ml INH RQ4 [facility] Last Admin: 12/08/18 20:23 Dose: 3 ml Enoxaparin Sodium (Lovenox) 40 mg SC DAILY [facility] Last Admin: 12/08/18 09:20 Dose: 40 mg Fluticasone/Vilanterol (Breo Ellipta 200-25 Mcg Inh) 1 puff INH RQD [facility] Last Admin: 12/08/18 09:19 Dose: 1 puff Ceftriaxone Sodium 1 gm/ (Sodium Chloride) 100 mls @ 100 mls/hr IVPB DAILY [facility]; Protocol Last Admin: 12/08/18 09:20 Dose: 100 mls/hr Azithromycin 500 mg/ Sodium (Chloride) 250 mls @ 250 mls/hr IVPB DAILY@1100 [facility]; Protocol Last Admin: 12/08/18 12:16 Dose: 250 mls/hr Methylprednisolone (Solu-Medrol) 40 mg IVP DAILY [facility] Pantoprazole Sodium (Protonix Inj) 40 mg IVP DAILY [facility] Last Admin: 12/08/18 09:20 Dose: 40 mg Tiotropium [place] (Spiriva) 18 mcg INH RQ24 [facility] Last Admin: 12/08/18 09:20 Dose: 18 mcg - Labs Labs: 12/07/18 07:42 12/07/18 07:42 PT 12.8 SECONDS (9.7-12.2) H 12/04/18 23:58 INR 1.2 12/04/18 23:58 APTT 26 SECONDS (21-34) 12/04/18 23:58
[2018-12-09] MEDS: Albuterol-Ipratrop 3 mg / 0.5 (3 ml) UD INH SCH ×6 (00:25→20:07)
[2018-12-09] MEDS: Tiotropium 18 mcg Cap For Inhalation INH SCH (07:30)
[2018-12-09] MEDS: Fluticasone-Vilanterol 200/25mcg Diskus INH SCH (07:30)
--- NOTE | 2018-12-09 08:19 | CP.PCM.PN ---
Subjective - Date & Time of Evaluation Date of Evaluation: 12/09/18 Time of Evaluation: 08:18 - Subjective Subjective: Patient inspiratory capacity is only 500 mL. Forced expiration is only 100 mL. Patient saturation on 4 L 92%. But patient is otherwise comfortable. Vital signs are stable otherwise. Chest good air entry regular heart sounds abdominal tenderness -1+ pedal edema I will continue the Solu-Medrol 40 mg daily. On antibiotic. Inhaled corticosteroid and nebulizer. DVT prophylaxis and will follow the patient Objective - Vital Signs/Intake and Output Vital Signs (last 24 hours): Temp Pulse Resp BP Pulse Ox 97.9 F 71 20 137/66 98 12/08/18 23:20 12/08/18 23:20 12/08/18 23:20 12/08/18 23:20 12/08/18 23:20 - Medications Medications: Current Medications Acetaminophen (Tylenol 325mg Tab) 975 mg PO Q6 PRN PRN Reason: Pain, severe (8-10) Last Admin: 12/08/18 19:54 Dose: 975 mg Albuterol/Ipratropium (Duoneb 3 Mg/0.5 Mg (3 Ml) Ud) 3 ml INH RQ4 [facility] Last Admin: 12/09/18 03:10 Dose: 3 ml Enoxaparin Sodium (Lovenox) 40 mg SC DAILY [facility] Last Admin: 12/08/18 09:20 Dose: 40 mg Fluticasone/Vilanterol (Breo Ellipta 200-25 Mcg Inh) 1 puff INH RQD [facility] Last Admin: 12/08/18 09:19 Dose: 1 puff Ceftriaxone Sodium 1 gm/ (Sodium Chloride) 100 mls @ 100 mls/hr IVPB DAILY [facility]; Protocol Last Admin: 12/08/18 09:20 Dose: 100 mls/hr Azithromycin 500 mg/ Sodium (Chloride) 250 mls @ 250 mls/hr IVPB DAILY@1100 [facility]; Protocol Last Admin: 12/08/18 12:16 Dose: 250 mls/hr Methylprednisolone (Solu-Medrol) 40 mg IVP DAILY [facility] Pantoprazole Sodium (Protonix Inj) 40 mg IVP DAILY [facility] Last Admin: 12/08/18 09:20 Dose: 40 mg Tiotropium [place] (Spiriva) 18 mcg INH RQ24 [facility] Last Admin: 12/08/18 09:20 Dose: 18 mcg - Labs Labs: 12/07/18 07:42 12/07/18 07:42 PT 12.8 SECONDS (9.7-12.2) H 12/04/18 23:58 INR 1.2 12/04/18 23:58 APTT 26 SECONDS (21-34) 12/04/18 23:58
[2018-12-09] MEDS: Pantoprazole 40 mg EC Tab PO SCH (10:00)
[2018-12-09] MEDS: Enoxaparin 40 mg Syringe SC SCH (10:00)
[2018-12-09] MEDS: MethylPREDNISolone 40 mg Vial IVP SCH (10:00)
[2018-12-09] MEDS: Azithromycin 500 MG in Sodium Chloride 0.9% 250 ML IVPB SCH (12:00)
[2018-12-10] MEDS: Albuterol-Ipratrop 3 mg / 0.5 (3 ml) UD INH SCH ×6 (04:10→19:33)
[2018-12-10] MEDS: Fluticasone-Vilanterol 200/25mcg Diskus INH SCH (10:27)
[2018-12-10] MEDS: Tiotropium 18 mcg Cap For Inhalation INH SCH (10:27)
[2018-12-10] MEDS: MethylPREDNISolone 40 mg Vial IVP SCH (10:57)
[2018-12-10] MEDS: Enoxaparin 40 mg Syringe SC SCH (10:57)
[2018-12-10] MEDS: Pantoprazole 40 mg EC Tab PO SCH (10:57)
[2018-12-10] MEDS: Azithromycin 500 MG in Sodium Chloride 0.9% 250 ML IVPB SCH (11:07)
--- NOTE | 2018-12-10 18:56 | CP.PCM.PN ---
Subjective - Date & Time of Evaluation Date of Evaluation: 12/10/18 Time of Evaluation: 18:55 - Subjective Subjective: Patient is morning feeling well. Now also feeling better. On cannula. Saturation is better. Chest good air entry Saturation is otherwise stable. Vital signs stable. Good air entry. We will taper the steroid. Possible discharge plan tomorrow if she is stable. We will continue the current treatment. On antibiotic bronchodilator. Objective - Vital Signs/Intake and Output Vital Signs (last 24 hours): Temp Pulse Resp BP Pulse Ox 98.2 F 70 18 134/70 95 12/10/18 15:00 12/10/18 15:00 12/10/18 15:00 12/10/18 15:00 12/10/18 15:00 Intake and Output: 12/10/18 12/10/18 06:59 18:59 Intake Total 500 Balance 500 - Medications Medications: Current Medications Acetaminophen (Tylenol 325mg Tab) 975 mg PO Q6 PRN PRN Reason: Pain, severe (8-10) Last Admin: 12/10/18 11:05 Dose: 975 mg Albuterol/Ipratropium (Duoneb 3 Mg/0.5 Mg (3 Ml) Ud) 3 ml INH RQ4 [facility] Last Admin: 12/10/18 16:00 Dose: 3 ml Enoxaparin Sodium (Lovenox) 40 mg SC DAILY [facility] Last Admin: 12/10/18 10:57 Dose: 40 mg Fluticasone/Vilanterol (Breo Ellipta 200-25 Mcg Inh) 1 puff INH RQD [facility] Last Admin: 12/10/18 10:27 Dose: 1 puff Ceftriaxone Sodium 1 gm/ (Sodium Chloride) 100 mls @ 100 mls/hr IVPB DAILY [facility]; Protocol Last Admin: 12/10/18 10:56 Dose: 100 mls/hr Azithromycin 500 mg/ Sodium (Chloride) 250 mls @ 250 mls/hr IVPB DAILY@1100 [facility]; Protocol Last Admin: 12/10/18 11:07 Dose: 250 mls/hr Methylprednisolone (Solu-Medrol) 20 mg IVP DAILY [facility] Pantoprazole Sodium (Protonix Ec Tab) 40 mg PO DAILY [facility] Last Admin: 12/10/18 10:57 Dose: 40 mg Tiotropium [place] (Spiriva) 18 mcg INH RQ24 [facility] Last Admin: 12/10/18 10:27 Dose: 18 mcg - Labs Labs: 12/07/18 07:42 12/07/18 07:42 PT 12.8 SECONDS (9.7-12.2) H 12/04/18 23:58 INR 1.2 12/04/18 23:58 APTT 26 SECONDS (21-34) 12/04/18 23:58
[2018-12-11] MEDS: Albuterol-Ipratrop 3 mg / 0.5 (3 ml) UD INH SCH ×6 (00:55→19:58)
[2018-12-11] MEDS: Tiotropium 18 mcg Cap For Inhalation INH SCH (07:55)
[2018-12-11] MEDS: Fluticasone-Vilanterol 200/25mcg Diskus INH SCH (07:55)
[2018-12-11 08:06] LABS: ALB/GLOB RATIO 1.3 (1.0-2.1); ALBUMIN 3.3 g/dL (3.5-5.0); ALT/SGPT 31 U/L (9-52); AST/SGOT 22 U/L (14-36); BLOOD UREA NITROGEN 16 mg/dL (7-17); CALCIUM 8.4 mg/dl (8.6-10.4); GFR NON-AFRICAN AMERICAN > 60
[2018-12-11 08:43] LABS: BASO % 0.2 % (0.0-2.0); EOS # 0.1 K/uL (0.0-0.7); EOS % 0.8 % (0.0-4.0); LYMPH # 1.3 K/uL (1.0-4.3); LYMPH % 18.8 % (20.0-40.0); MEAN CORPUSCULAR HEMOGLOBIN 31.8 pg (27.0-31.0); MEAN CORPUSCULAR HGB CONC 31.6 g/dL (33.0-37.0); MEAN PLATELET VOLUME 7.6 fL (7.2-11.7); MONO % 14.5 % (0.0-10.0); NEUT # 4.4 K/uL (1.8-7.0); NEUT % 65.7 % (50.0-75.0); NRBC % 0.1 % (0.0-2.0); RBC 4.08 Mil/uL (3.80-5.20); RED CELL DISTRIBUTION WIDTH 15.2 % (11.5-14.5); WHITE BLOOD COUNT 6.7 K/uL (4.8-10.8)
[2018-12-11 08:44] LABS: MEAN CELL VOLUME 100.6 fL (81.0-99.0)
[2018-12-11] MEDS: Enoxaparin 40 mg Syringe SC SCH (09:53)
[2018-12-11] MEDS: Pantoprazole 40 mg EC Tab PO SCH (09:54)
[2018-12-11] MEDS: MethylPREDNISolone 40 mg Vial IVP SCH (09:54)
[2018-12-11] MEDS: Azithromycin 500 MG in Sodium Chloride 0.9% 250 ML IVPB SCH (13:26)
[2018-12-12] MEDS: Albuterol-Ipratrop 3 mg / 0.5 (3 ml) UD INH SCH ×7 (01:12→23:58)
[2018-12-12] MEDS: Tiotropium 18 mcg Cap For Inhalation INH SCH (07:40)
[2018-12-12] MEDS: Fluticasone-Vilanterol 200/25mcg Diskus INH SCH (07:40)
[2018-12-12] MEDS: MethylPREDNISolone 40 mg Vial IVP SCH (10:05)
[2018-12-12] MEDS: Pantoprazole 40 mg EC Tab PO SCH (10:05)
[2018-12-12] MEDS: Enoxaparin 40 mg Syringe SC SCH (10:05)
[2018-12-12] MEDS: Azithromycin 500 MG in Sodium Chloride 0.9% 250 ML IVPB SCH (10:26)
[2018-12-13] MEDS: Albuterol-Ipratrop 3 mg / 0.5 (3 ml) UD INH SCH ×5 (03:34→21:25)
[2018-12-13] MEDS: Tiotropium 18 mcg Cap For Inhalation INH SCH (07:40)
[2018-12-13] MEDS: Fluticasone-Vilanterol 200/25mcg Diskus INH SCH (07:40)
[2018-12-13] MEDS: Pantoprazole 40 mg EC Tab PO SCH (09:40)
[2018-12-13] MEDS: MethylPREDNISolone 40 mg Vial IVP SCH (09:40)
[2018-12-13] MEDS: Enoxaparin 40 mg Syringe SC SCH (09:40)
--- NOTE | 2018-12-13 11:41 | CARD ---
APPROVED REPORT Date of service: 12/05/2018 EKG Measurement Heart [id number] <Conclusion> Normal sinus rhythm Possible Left atrial enlargement Anterolateral infarct, age undetermined T wave abnormality, consider inferior ischemia Abnormal ECG
[2018-12-14] MEDS: Albuterol-Ipratrop 3 mg / 0.5 (3 ml) UD INH SCH ×6 (00:28→19:32)
[2018-12-14] MEDS: Tiotropium 18 mcg Cap For Inhalation INH SCH (08:41)
[2018-12-14] MEDS: Fluticasone-Vilanterol 200/25mcg Diskus INH SCH (08:42)
[2018-12-14] MEDS: MethylPREDNISolone 40 mg Vial IVP SCH (09:37)
[2018-12-14] MEDS: Enoxaparin 40 mg Syringe SC SCH (10:07)
[2018-12-14] MEDS: Pantoprazole 40 mg EC Tab PO SCH (10:08)
[2018-12-15] MEDS: Albuterol-Ipratrop 3 mg / 0.5 (3 ml) UD INH SCH ×6 (00:05→19:29)
[2018-12-15] MEDS: Fluticasone-Vilanterol 200/25mcg Diskus INH SCH (08:00)
[2018-12-15] MEDS: Tiotropium 18 mcg Cap For Inhalation INH SCH (08:00)
[2018-12-15] MEDS: Pantoprazole 40 mg EC Tab PO SCH (09:13)
[2018-12-15] MEDS: MethylPREDNISolone 40 mg Vial IVP SCH (09:13)
[2018-12-16] MEDS: Albuterol-Ipratrop 3 mg / 0.5 (3 ml) UD INH SCH ×7 (00:52→23:37)
[2018-12-16] MEDS: Tiotropium 18 mcg Cap For Inhalation INH SCH (07:35)
[2018-12-16] MEDS: Fluticasone-Vilanterol 200/25mcg Diskus INH SCH (07:35)
[2018-12-16] MEDS: Pantoprazole 40 mg EC Tab PO SCH (09:17)
[2018-12-16] MEDS: MethylPREDNISolone 40 mg Vial IVP SCH (09:18)
[2018-12-16 14:32] LABS: BASO # 0.1 K/uL (0.0-0.2); BASO % 0.6 % (0.0-2.0); EOS % 0.3 % (0.0-4.0); LYMPH # 0.6 K/uL (1.0-4.3); MEAN CELL VOLUME 99.8 fL (81.0-99.0); MEAN CORPUSCULAR HEMOGLOBIN 32.4 pg (27.0-31.0); MEAN CORPUSCULAR HGB CONC 32.4 g/dL (33.0-37.0); MEAN PLATELET VOLUME 7.8 fL (7.2-11.7); MONO # 0.6 K/uL (0.0-0.8); MONO % 6.1 % (0.0-10.0); NEUT # 8.6 K/uL (1.8-7.0); PLATELET COUNT 308 K/uL (130-400); RBC 4.32 Mil/uL (3.80-5.20); RED CELL DISTRIBUTION WIDTH 14.1 % (11.5-14.5); WHITE BLOOD COUNT 9.9 K/uL (4.8-10.8)
[2018-12-16 14:38] LABS: BLOOD UREA NITROGEN 19 mg/dL (7-17); CALCIUM 9.1 mg/dl (8.6-10.4); GFR NON-AFRICAN AMERICAN > 60
[2018-12-16 15:09] LABS: EOSINOPHIL 1 % (0-4); LYMPHOCYTE 6 % (20-40); MONOCYTE 4 % (0-10); NEUTROPHIL 89 % (50-75); PLATELET ESTIMATE NORMAL (NORMAL); TOTAL CELLS COUNTED 100
--- NOTE | 2018-12-16 22:46 | CP.PCM.PN ---
Subjective - Date & Time of Evaluation Date of Evaluation: 12/11/18 Time of Evaluation: 22:46 - Subjective Subjective: The peak flow rate is very low. Inspiratory capacity is only 500 mL. Still having low SPO2 Chest wheezing and tightness noted I advised her to continue the intravenous Solu-Medrol, bronchodilators, antibiotic and will follow the patient Objective - Vital Signs/Intake and Output Vital Signs (last 24 hours): Temp Pulse Resp BP Pulse Ox 98.5 F 73 18 118/78 95 12/16/18 15:00 12/16/18 15:00 12/16/18 15:00 12/16/18 15:00 12/16/18 15:00 - Medications Medications: Current Medications Acetaminophen (Tylenol 325mg Tab) 975 mg PO Q6 PRN PRN Reason: Pain, severe (8-10) Last Admin: 12/16/18 09:17 Dose: 975 mg Albuterol/Ipratropium (Duoneb 3 Mg/0.5 Mg (3 Ml) Ud) 3 ml INH RQ4 [facility] Last Admin: 12/16/18 19:40 Dose: 3 ml Fluticasone/Vilanterol (Breo Ellipta 200-25 Mcg Inh) 1 puff INH RQD [facility] Last Admin: 12/16/18 07:35 Dose: 1 puff Methylprednisolone (Solu-Medrol) 20 mg IVP DAILY [facility] Last Admin: 12/16/18 09:18 Dose: 20 mg Pantoprazole Sodium (Protonix Ec Tab) 40 mg PO DAILY [facility] Last Admin: 12/16/18 09:17 Dose: 40 mg Tiotropium [place] (Spiriva) 18 mcg INH RQ24 [facility] Last Admin: 12/16/18 07:35 Dose: 18 mcg - Labs Labs: 12/16/18 14:16 12/16/18 14:16 PT 12.8 SECONDS (9.7-12.2) H 12/04/18 23:58 INR 1.2 12/04/18 23:58 APTT 26 SECONDS (21-34) 12/04/18 23:58
--- NOTE | 2018-12-16 22:47 | CP.PCM.PN ---
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 Complaining of wheezing and coughing. Oxygen saturation room air is 88%. Objective - Vital Signs/Intake and Output Vital Signs (last 24 hours): Temp Pulse Resp BP Pulse Ox 98.5 F 73 18 118/78 95 12/16/18 15:00 12/16/18 15:00 12/16/18 15:00 12/16/18 15:00 12/16/18 15:00 - Medications Medications: Current Medications Acetaminophen (Tylenol 325mg Tab) 975 mg PO Q6 PRN PRN Reason: Pain, severe (8-10) Last Admin: 12/16/18 09:17 Dose: 975 mg Albuterol/Ipratropium (Duoneb 3 Mg/0.5 Mg (3 Ml) Ud) 3 ml INH RQ4 [facility] Last Admin: 12/16/18 19:40 Dose: 3 ml Fluticasone/Vilanterol (Breo Ellipta 200-25 Mcg Inh) 1 puff INH RQD [facility] Last Admin: 12/16/18 07:35 Dose: 1 puff Methylprednisolone (Solu-Medrol) 20 mg IVP DAILY [facility] Last Admin: 12/16/18 09:18 Dose: 20 mg Pantoprazole Sodium (Protonix Ec Tab) 40 mg PO DAILY [facility] Last Admin: 12/16/18 09:17 Dose: 40 mg Tiotropium [place] (Spiriva) 18 mcg INH RQ24 [facility] Last Admin: 12/16/18 07:35 Dose: 18 mcg - Labs Labs: 12/16/18 14:16 12/16/18 14:16 PT 12.8 SECONDS (9.7-12.2) H 12/04/18 23:58 INR 1.2 12/04/18 23:58 APTT 26 SECONDS (21-34) 12/04/18 23:58
--- NOTE | 2018-12-16 22:47 | CP.PCM.PN ---
Subjective - Date & Time of Evaluation Date of Evaluation: 12/13/18 Time of Evaluation: 22:47 - Subjective Subjective: No fever noted. No diarrhea noted. No abdominal pain. But having increasing S OB, wheezing noted. On examination: Chest bilateral good air entry, but lower lung marin a decreased air entry noted Patient's peak flow rate is 100 L/s. Still having worsening oxygenation, patient will need home oxygen, but the patient is very reluctant to take the home oxygen. Continue the current antibiotic, bronchodilator and intravenous corticosteroid Objective - Vital Signs/Intake and Output Vital Signs (last 24 hours): Temp Pulse Resp BP Pulse Ox 98.5 F 73 18 118/78 95 12/16/18 15:00 12/16/18 15:00 12/16/18 15:00 12/16/18 15:00 12/16/18 15:00 - Medications Medications: Current Medications Acetaminophen (Tylenol 325mg Tab) 975 mg PO Q6 PRN PRN Reason: Pain, severe (8-10) Last Admin: 12/16/18 09:17 Dose: 975 mg Albuterol/Ipratropium (Duoneb 3 Mg/0.5 Mg (3 Ml) Ud) 3 ml INH RQ4 [facility] Last Admin: 12/16/18 19:40 Dose: 3 ml Fluticasone/Vilanterol (Breo Ellipta 200-25 Mcg Inh) 1 puff INH RQD [facility] Last Admin: 12/16/18 07:35 Dose: 1 puff Methylprednisolone (Solu-Medrol) 20 mg IVP DAILY [facility] Last Admin: 12/16/18 09:18 Dose: 20 mg Pantoprazole Sodium (Protonix Ec Tab) 40 mg PO DAILY [facility] Last Admin: 12/16/18 09:17 Dose: 40 mg Tiotropium [place] (Spiriva) 18 mcg INH RQ24 [facility] Last Admin: 12/16/18 07:35 Dose: 18 mcg - Labs Labs: 12/16/18 14:16 12/16/18 14:16 PT 12.8 SECONDS (9.7-12.2) H 12/04/18 23:58 INR 1.2 12/04/18 23:58 APTT 26 SECONDS (21-34) 12/04/18 23:58
--- NOTE | 2018-12-16 22:47 | CP.PCM.PN ---
Subjective - Date & Time of Evaluation Date of Evaluation: 12/15/18 Time of Evaluation: 22:47 - Subjective Subjective: Patient is able to walk. She is you able to walk without oxygen. But exertional dyspnea, tachypnea, and oxygen saturation is 86% noted. Patient is very reluctant to have the home O2. I advised her it is unsafe to discharge with low SPO2. Objective - Vital Signs/Intake and Output Vital Signs (last 24 hours): Temp Pulse Resp BP Pulse Ox 98.5 F 73 18 118/78 95 12/16/18 15:00 12/16/18 15:00 12/16/18 15:00 12/16/18 15:00 12/16/18 15:00 - Medications Medications: Current Medications Acetaminophen (Tylenol 325mg Tab) 975 mg PO Q6 PRN PRN Reason: Pain, severe (8-10) Last Admin: 12/16/18 09:17 Dose: 975 mg Albuterol/Ipratropium (Duoneb 3 Mg/0.5 Mg (3 Ml) Ud) 3 ml INH RQ4 [facility] Last Admin: 12/16/18 19:40 Dose: 3 ml Fluticasone/Vilanterol (Breo Ellipta 200-25 Mcg Inh) 1 puff INH RQD [facility] Last Admin: 12/16/18 07:35 Dose: 1 puff Methylprednisolone (Solu-Medrol) 20 mg IVP DAILY [facility] Last Admin: 12/16/18 09:18 Dose: 20 mg Pantoprazole Sodium (Protonix Ec Tab) 40 mg PO DAILY [facility] Last Admin: 12/16/18 09:17 Dose: 40 mg Tiotropium [place] (Spiriva) 18 mcg INH RQ24 [facility] Last Admin: 12/16/18 07:35 Dose: 18 mcg - Labs Labs: 12/16/18 14:16 12/16/18 14:16 PT 12.8 SECONDS (9.7-12.2) H 12/04/18 23:58 INR 1.2 12/04/18 23:58 APTT 26 SECONDS (21-34) 12/04/18 23:58
--- NOTE | 2018-12-16 22:47 | CP.PCM.PN ---
Subjective - Date & Time of Evaluation Date of Evaluation: 12/12/18 Time of Evaluation: 22:46 - Subjective Subjective: Still complaining of shortness of breath. She is not feeling well today. Complaining of left foot pain. Denies any chest pain or shortness of breath Wheezing noted. Peak flow is very limited Less than 100 at this time Patient is oxygen saturation is 86% Objective - Vital Signs/Intake and Output Vital Signs (last 24 hours): Temp Pulse Resp BP Pulse Ox 98.5 F 73 18 118/78 95 12/16/18 15:00 12/16/18 15:00 12/16/18 15:00 12/16/18 15:00 12/16/18 15:00 - Medications Medications: Current Medications Acetaminophen (Tylenol 325mg Tab) 975 mg PO Q6 PRN PRN Reason: Pain, severe (8-10) Last Admin: 12/16/18 09:17 Dose: 975 mg Albuterol/Ipratropium (Duoneb 3 Mg/0.5 Mg (3 Ml) Ud) 3 ml INH RQ4 [facility] Last Admin: 12/16/18 19:40 Dose: 3 ml Fluticasone/Vilanterol (Breo Ellipta 200-25 Mcg Inh) 1 puff INH RQD [facility] Last Admin: 12/16/18 07:35 Dose: 1 puff Methylprednisolone (Solu-Medrol) 20 mg IVP DAILY [facility] Last Admin: 12/16/18 09:18 Dose: 20 mg Pantoprazole Sodium (Protonix Ec Tab) 40 mg PO DAILY [facility] Last Admin: 12/16/18 09:17 Dose: 40 mg Tiotropium [place] (Spiriva) 18 mcg INH RQ24 [facility] Last Admin: 12/16/18 07:35 Dose: 18 mcg - Labs Labs: 12/16/18 14:16 12/16/18 14:16 PT 12.8 SECONDS (9.7-12.2) H 12/04/18 23:58 INR 1.2 12/04/18 23:58 APTT 26 SECONDS (21-34) 12/04/18 23:58
--- NOTE | 2018-12-16 22:48 | CP.PCM.PN ---
Subjective - Date & Time of Evaluation Date of Evaluation: 12/16/18 Time of Evaluation: 22:48 - Subjective Subjective: Patient now able to walk better than before. On walking patient oxygen saturation is dropped to 90%. Resting oxygen saturation is 93-94%. Less wheezing noted. No cough noted. Denies any fever On examination: Good air entry Heart sounds are regular Nontender abdomen. No pedal edema Assessment and recommendation: 53 female admitted with a COPD exacerbation. Chronic smoker. I advised her to quit smoking. Patient can be discharged home tomorrow and will follow the patient. Objective - Vital Signs/Intake and Output Vital Signs (last 24 hours): Temp Pulse Resp BP Pulse Ox 98.5 F 73 18 118/78 95 12/16/18 15:00 12/16/18 15:00 12/16/18 15:00 12/16/18 15:00 12/16/18 15:00 - Medications Medications: Current Medications Acetaminophen (Tylenol 325mg Tab) 975 mg PO Q6 PRN PRN Reason: Pain, severe (8-10) Last Admin: 12/16/18 09:17 Dose: 975 mg Albuterol/Ipratropium (Duoneb 3 Mg/0.5 Mg (3 Ml) Ud) 3 ml INH RQ4 [facility] Last Admin: 12/16/18 19:40 Dose: 3 ml Fluticasone/Vilanterol (Breo Ellipta 200-25 Mcg Inh) 1 puff INH RQD [facility] Last Admin: 12/16/18 07:35 Dose: 1 puff Methylprednisolone (Solu-Medrol) 20 mg IVP DAILY [facility] Last Admin: 12/16/18 09:18 Dose: 20 mg Pantoprazole Sodium (Protonix Ec Tab) 40 mg PO DAILY [facility] Last Admin: 12/16/18 09:17 Dose: 40 mg Tiotropium [place] (Spiriva) 18 mcg INH RQ24 [facility] Last Admin: 12/16/18 07:35 Dose: 18 mcg - Labs Labs: 12/16/18 14:16 12/16/18 14:16 PT 12.8 SECONDS (9.7-12.2) H 12/04/18 23:58 INR 1.2 12/04/18 23:58 APTT 26 SECONDS (21-34) 12/04/18 23:58
--- NOTE | 2018-12-16 22:48 | CP.PCM.DIS ---
Provider - Provider Date of Admission: 12/05/18 00:49 Attending physician: Aryan Ramirez MD Time Spent in preparation of Discharge (in minutes): 45 Hospital Course - Lab Results Lab Results: Micro Results 12/05/18 04:45 Blood Blood Culture - Final NO GROWTH AFTER 5 DAYS 12/05/18 04:45 Blood Gram Stain - Final TEST NOT PERFORMED Most Recent Lab Values WBC 9.9 K/uL (4.8-10.8) 12/16/18 14:16 RBC 4.32 Mil/uL (3.80-5.20) 12/16/18 14:16 Hgb 14.0 g/dL (11.0-16.0) 12/16/18 14:16 Hct 43.2 % (34.0-47.0) 12/16/18 14:16 MCV 99.8 fL (81.0-99.0) H 12/16/18 14:16 MCH 32.4 pg (27.0-31.0) H 12/16/18 14:16 MCHC 32.4 g/dL (33.0-37.0) L 12/16/18 14:16 RDW 14.1 % (11.5-14.5) 12/16/18 14:16 Plt Count 308 K/uL (130-400) 12/16/18 14:16 MPV 7.8 fL (7.2-11.7) 12/16/18 14:16 Neut % (Auto) 87.0 % (50.0-75.0) H 12/16/18 14:16 Lymph % (Auto) 6.0 % (20.0-40.0) L 12/16/18 14:16 Riley % (Auto) 6.1 % (0.0-10.0) 12/16/18 14:16 Eos % (Auto) 0.3 % (0.0-4.0) 12/16/18 14:16 Baso % (Auto) 0.6 % (0.0-2.0) 12/16/18 14:16 Neut # (Auto) 8.6 K/uL (1.8-7.0) H 12/16/18 14:16 Lymph # (Auto) 0.6 K/uL (1.0-4.3) L 12/16/18 14:16 Riley # (Auto) 0.6 K/uL (0.0-0.8) 12/16/18 14:16 Eos # (Auto) 0.0 K/uL (0.0-0.7) 12/16/18 14:16 Baso # (Auto) 0.1 K/uL (0.0-0.2) 12/16/18 14:16 Neutrophils % (Manual) 89 % (50-75) H 12/16/18 14:16 Band Neutrophils % 1 % (0-2) 12/07/18 07:42 Lymphocytes % (Manual) 6 % (20-40) L 12/16/18 14:16 Monocytes % (Manual) 4 % (0-10) 12/16/18 14:16 Eosinophils % (Manual) 1 % (0-4) 12/16/18 14:16 Nucleated RBC % 1 % (0-0) H 12/06/18 08:26 Toxic Granulation Present 12/06/18 08:26 Platelet Estimate Normal (NORMAL) 12/16/18 14:16 Large Platelets Present 12/06/18 08:26 Polychromasia Slight 12/06/18 08:26 Hypochromasia (manual) Slight 12/06/18 08:26 Basophilic Stippling Slight 12/07/18 07:42 Anisocytosis (manual) Slight 12/06/18 08:26 Macrocytosis (manual) Slight 12/06/18 08:26 PT 12.8 SECONDS (9.7-12.2) H 12/04/18 23:58 INR 1.2 12/04/18 23:58 APTT 26 SECONDS (21-34) 12/04/18 23:58 Puncture Site R brachial 12/05/18 08:20 pCO2 62 mm/Hg (35-45) H 12/05/18 08:20 pO2 65 mm/Hg (80-100) L 12/05/18 08:20 HCO3 28.5 mmol/L (21-28) H 12/05/18 08:20 ABG pH 7.33 (7.35-7.45) L 12/05/18 08:20 ABG Total CO2 34.6 mmol/L (22-28) H 12/05/18 08:20 ABG O2 Saturation 94.6 % (95-98) L 12/05/18 08:20 ABG Base Excess 4.8 mmol/L (-2.0-3.0) H 12/05/18 08:20 ABG Hemoglobin 13.9 g/dL (11.7-17.4) 12/05/18 08:20 ABG Carboxyhemoglobin 3.4 % (0.5-1.5) H 12/05/18 08:20 POC ABG HHb (Measured) 5.2 % (0.0-5.0) H 12/05/18 08:20 ABG Methemoglobin 1.0 % (0.0-3.0) 12/05/18 08:20 Glenn Test Na 12/05/18 08:20 ABG Potassium 3.7 mmol/L (3.6-5.2) 12/05/18 00:10 A-a O2 Difference 143.0 mm/Hg 12/05/18 08:20 Respiratory Index 2.2 12/05/18 08:20 Hgb O2 Saturation 90.4 % (95.0-98.0) L 12/05/18 08:20 Sodium 136.0 mmol/l (132-148) 12/05/18 00:10 Chloride 98.0 mmol/L (98-107) 12/05/18 00:10 Glucose 151 mg/dl (65-105) H 12/05/18 00:10 Lactate 0.9 mmol/L (0.7-2.1) 12/05/18 00:10 Liter Flow 5.0 12/05/18 08:20 FiO2 40.0 % 12/05/18 08:20 Crit Value Called To Dr. spann 12/05/18 00:10 Crit Value Called By Darryl aviation technician 12/05/18 00:10 Crit Value Read Back Y 12/05/18 00:10 Blood Gas Notified Time 16 12/05/18 00:10 Sodium 136 mmol/L (132-148) 12/16/18 14:16 Potassium 4.8 mmol/L (3.6-5.2) 12/16/18 14:16 Chloride 100 mmol/L (98-107) 12/16/18 14:16 Carbon Dioxide 33 mmol/L (22-30) H 12/16/18 14:16 Anion Gap 8 (10-20) L 12/16/18 14:16 BUN 19 mg/dL (7-17) H 12/16/18 14:16 Creatinine 0.6 mg/dL (0.7-1.2) L 12/16/18 14:16 Est GFR ( Amer) > 60 12/16/18 14:16 Est GFR (Non-Af Amer) > 60 12/16/18 14:16 Random Glucose 111 mg/dL (65-105) H 12/16/18 14:16 Calcium 9.1 mg/dl (8.6-10.4) 12/16/18 14:16 Phosphorus 4.0 mg/dL (2.5-4.5) 12/11/18 07:09 Magnesium 2.1 mg/dL (1.6-2.3) 12/11/18 07:09 Total Bilirubin 0.8 mg/dL (0.2-1.3) 12/11/18 07:09 AST 22 U/L (14-36) 12/11/18 07:09 ALT 31 U/L (9-52) 12/11/18 07:09 Alkaline Phosphatase 32 U/L (38-126) L D 12/11/18 07:09 Total Protein 5.7 g/dL (6.3-8.3) L 12/11/18 07:09 Albumin 3.3 g/dL (3.5-5.0) L 12/11/18 07:09 Globulin 2.4 gm/dL (2.2-3.9) 12/11/18 07:09 Albumin/Globulin Ratio 1.3 (1.0-2.1) 12/11/18 07:09 Arterial Blood Potassium 3.7 mmol/L (3.6-5.2) 12/05/18 00:10 Urine Color Yellow (YELLOW) 12/06/18 13:26 Urine Clarity Clear (Clear) 12/06/18 13:26 Urine pH 6.0 (5.0-8.0) 12/06/18 13:26 Ur Specific [place] 1.018 (1.003-1.030) 12/06/18 13:26 Urine Protein Negative mg/dL (NEGATIVE) 12/06/18 13:26 Urine Glucose (UA) Normal mg/dL (Normal) 12/06/18 13:26 Urine Ketones Negative mg/dL (NEGATIVE) 12/06/18 13:26 Urine Blood Negative (NEGATIVE) 12/06/18 13:26 Urine Nitrate Negative (NEGATIVE) 12/06/18 13:26 Urine Bilirubin Negative (NEGATIVE) 12/06/18 13:26 Urine Urobilinogen Normal mg/dL (0.2-1.0) 12/06/18 13:26 Ur Leukocyte Esterase Neg Niki/uL (Negative) 12/06/18 13:26 Urine WBC (Auto) 2 /hpf (0-5) 12/06/18 13:26 Urine RBC (Auto) 1 /hpf (0-3) 12/06/18 13:26 Ur Squamous Epith Cells 1 /hpf (0-5) 12/06/18 13:26 Influenza Typ A,B (EIA) Negative for flu a/b (NEGATIVE) 12/04/18 23:59 - Hospital Course Hospital Course: Chief command: Shortness of breath. History present illness: 50-year-old female with history of COPD, current active smoker, obesity, diabetes, hypertension, hypercholesteremia and chronic pain syndrome. Patient came to the emergency room with the worsening shortness of breath. Patient came to the emergency room a week ago with the symptoms of shortness of breath and also feeling dizzy. She started noticing cough for almost 2 weeks, the cough was associated with chest tightness and wheezing. Patient was also noticed that her oxygen was on the low side. She did have a fever, on and off. She called my office, patient was given immediately antibiotic and I advised her to continue the nebulizer. But her symptoms did not get improving. She started having more shortness of breath, in the emergency room patient was noted to have severe chest tightness and wheezing. She was given antibiotic bronchodilators and steroid. Patient was placed on BiPAP. Patient is now feeling slightly better. But still having some discomfort, chest tightness, wheezing and coughing noted. Room air oxygen saturation is 84% at this time Past medical history: Hypertension, COPD, hypercholesteremia, obesity, possible obesity hypoventilation. Allergy: Allergic to penicillin. Personal history: Patient is an active smoker, one pack per day for many years, denies any alcohol, lives by herself. family history significant for heart failure. Review of systems: She has having some headache, neck pain noted, no chest pain, shortness of breath, wheezing noted, chest tightness, associate with the mucus production with the cough. No abdominal pain, back pain noted, the bilateral leg swelling noted On examination: HEENT PERRLA, neck supple No thyromegaly was noted and no cervical adenopathy noted Patient has a bilateral chest wheezing and decreased air entry in the lung marin noted l CVS regular heart sound, no murmur Abdomen soft and no organomegaly Bilateral leg edema noted [employer] alert awake oriented x3 no functional neurological deficit. labs showing evidence of increased WBC. Blood gas analysis CO2 retention noted. Chest x-ray possible infiltrative changes in the lower lung marin noted Assessment and recommendation: 53-year-old female with history of hypertension, diabetes, hypercholesteremia, obesity, obesity hypoventilation, and COPD admitted with a possible acute exacerbation of COPD, and associate her bronchitis. Bronchodilators, cortical steroid, intravenous antibiotic and the diuretics. Patient will be closely monitored. BiPAP. DuoNeb. Blood gas analysis. we will continue the bronchodilators. DVT GI prophylaxis. I would like to get the CAT scan of the chest and will follow the patient go to the hospital: Patient was hospitalized with acute exacerbation of COPD with a severe hypoxia. Patient started on intravenous antibiotic, intravenous corticosteroids, bronchodilators. Daily flow measured. Incentive spirometer as measured also. CT scan of the chest is showing no evidence of any acute pathology, no pneumonia noted. Slowly her wheezing and coughing got better. Her oxygenation was improved also. Patient is room air oxygen saturation was 86%, at that time I recommended home oxygen for her, but the patient refused to have the home oxygen. So patient was not able to be discharged, patient waited for another 2 days, her incentive spirometer continued. Her peak flow improved to 200. And her oxygen saturation went up to 93% at rest in room air patient clinically stable. Able to walk. Patient will be discharged home. She will be followed up in office in 1 week. Meanwhile she will continue her nebulizer, inhaler daily. And I advised her to quit smoking again. Final diagnosis acute exacerbation of COPD Acute bronchitis. Severe hypoxia. Possible obstructive sleep apnea with obesity. Venous insufficiency of the leg. We will follow the patient Discharge Plan - Follow Up Plan Condition: GUARDED Disposition: HOME/ ROUTINE Instructions: Smoking: Not Just Harmful to Your Lungs and Heart, Asthma, Adult (DC), COPD Including Emphysema (DC), Quitting Smoking Additional Instructions: Follow up with Dr. Ramirez. Please return to the closest emergency room for new or worsening symptoms. Referrals: Aryan Ramirez MD [Staff Provider] -
[2018-12-17] MEDS: Albuterol-Ipratrop 3 mg / 0.5 (3 ml) UD INH SCH ×3 (03:15→11:50)
[2018-12-17] MEDS: Tiotropium 18 mcg Cap For Inhalation INH SCH (07:40)
[2018-12-17] MEDS: Fluticasone-Vilanterol 200/25mcg Diskus INH SCH (07:40)
[2018-12-17 08:28] VITALS: RESP 20
[2018-12-17] MEDS: Pantoprazole 40 mg EC Tab PO SCH (09:10)
[2018-12-17] MEDS: MethylPREDNISolone 40 mg Vial IVP SCH (09:11)
[2018-12-17 15:37] VITALS: BP 112/75; PULSE 68; TEMP 98.3; O2SAT 92
== END 2018-12-17 16:41 | disposition home or self-care (01) | DRG 87 ==
LOC: C.ER 23:26 → C.9E 12-05 00:49 → C.5S 12-05 00:49 → C.9E 12-05 02:08 → C.5S 12-05 02:08 → C.9E 12-05 02:09 → C.5S 12-05 02:40 → C.9E 12-05 08:31 → C.5S 12-05 08:31 → C.9E 12-08 08:16 → C.5S 12-08 08:16 → C.6T 12-08 10:35 → C.5S 12-08 10:35
PROVIDERS: ADMIT Internal Medicine; ATTEND Internal Medicine
PROC: 5A09557 Assistance with Respiratory Ventilation, Greater than 96 Consecutive Hours, Continuous Positive Airway Pressure (ICD-10-PCS; principal; 2018-12-05)
DX: J96.21 Acute and chronic respiratory failure with hypoxia (principal); J44.0 Chronic obstructive pulmonary disease with (acute) lower respiratory infection; E11.22 Type 2 diabetes mellitus with diabetic chronic kidney disease; N18.9 Chronic kidney disease, unspecified; J45.901 Unspecified asthma with (acute) exacerbation; E87.2 Acidosis; J44.1 Chronic obstructive pulmonary disease with (acute) exacerbation; E66.2 Morbid (severe) obesity with alveolar hypoventilation; J20.9 Acute bronchitis, unspecified; E78.00 Pure hypercholesterolemia, unspecified; I12.9 Hypertensive chronic kidney disease with stage 1 through stage 4 chronic kidney disease, or unspecified chronic kidney disease; Z87.01 Personal history of pneumonia (recurrent); F17.210 Nicotine dependence, cigarettes, uncomplicated; G89.4 Chronic pain syndrome; I87.2 Venous insufficiency (chronic) (peripheral)